=== PATIENT | female | born 1960 | race African-American/Black ===

== ENCOUNTER 2017-07-10 11:42 | Emergency (ER) | payer BC ==
--- NOTE | 2017-07-10 12:29 | RAD ---
RIGHT HAND THREE VIEWS: History: 57-year-old female with history of right hand and right ring finger pain after a fall last night. FINDINGS: There is a minimally displaced foreshortened fracture of the distal fourth metacarpal with overlying soft tissue swelling. IMPRESSION: Minimally displaced and foreshortened fracture of the distal fourth metacarpal which appears to exten d into the mediocarpal phalangeal joint. POS: C
[2017-07-10] MEDS ORDERED: Ketorolac Tromethamine 30 MG/ML VIAL ONE (12:41)
== END 2017-07-10 14:00 | disposition home or self-care (01) ==
LOC: ERS 11:42
DX: S62.334A Displaced fracture of neck of fourth metacarpal bone, right hand, initial encounter for closed fracture (principal); E78.5 Hyperlipidemia, unspecified; I10 Essential (primary) hypertension; F17.210 Nicotine dependence, cigarettes, uncomplicated; W01.0XXA Fall on same level from slipping, tripping and stumbling without subsequent striking against object, initial encounter
CPT/HCPCS: 29125; 96372; J1885

== ENCOUNTER 2017-10-09 15:59 | Outpatient (CLI) | payer BC | END 2017-10-09 16:00 | disposition home or self-care (01) | LOC: BICMAMMO 15:59 | PROVIDERS: ATTEND Family Medicine | DX: Z12.31 Encounter for screening mammogram for malignant neoplasm of breast (principal) | CPT/HCPCS: 77063; 77067 ==

== ENCOUNTER 2018-11-13 12:51 | Outpatient (CLI) | payer BC ==
--- NOTE | 2018-11-13 14:12 | MMO ---
Bilateral MAMMO Bilat Screen [facility]. CLINICAL HISTORY: Patient is 58 years old and is seen for screening. The patient has no family history of breast cancer. The patient has no personal history of cancer. VIEWS: The views performed were: bilateral craniocaudal with tomosynthesis; bilateral mediolateral oblique with tomosynthesis; and right mediolateral oblique. FILMS COMPARED: The present examination has been compared to prior imaging studies performed at [facility] on 11/01/2010 and 10/09/2017. MAMMOGRAM FINDINGS: There are scattered fibroglandular densities. There are stable benign appearing calcifications seen in the right breast. There are no suspicious masses, suspicious calcifications, or new areas of architectural distortion. IMPRESSION: THERE IS NO MAMMOGRAPHIC EVIDENCE OF MALIGNANCY. A ROUTINE FOLLOW-UP MAMMOGRAM IN 1 YEAR IS RECOMMENDED. THE RESULTS OF THIS EXAM WERE SENT TO THE PATIENT. ACR BI-RADS Category 2 - Benign finding MAMMOGRAPHY NOTE: 1. A negative mammogram report should not delay a biopsy if a dominant of clinically suspicious mass is present. 2. Approximately 10% to 15% of breast cancers are not detected by mammography. 3. Adenosis and dense breasts may obscure an underlying neoplasm. Reported by: STAN CHILD MD Electonically Signed: [id number]
== END 2018-11-13 12:52 | disposition home or self-care (01) ==
LOC: BICMAMMO 12:51
PROVIDERS: ATTEND Family Medicine
DX: Z12.31 Encounter for screening mammogram for malignant neoplasm of breast (principal)
CPT/HCPCS: 77063; 77067

== ENCOUNTER 2019-04-17 14:28 | Outpatient (CLI) | payer BC | END 2019-04-17 14:29 | disposition home or self-care (01) | LOC: CTENTCT 14:28 | PROVIDERS: ATTEND Otolaryngology Plastic Surgery within the Head & Neck | DX: J32.8 Other chronic sinusitis (principal) | CPT/HCPCS: 70486 ==